=== PATIENT | female | born 1995 | race Asian ===

== ENCOUNTER 2019-03-16 01:42 | Emergency (ER) | payer SELFPAY ==
[2019-03-16] MEDS: KETOROLAC 60 MG INJ IM (07:05)
== END 2019-03-16 07:47 | disposition home or self-care (01) ==
LOC: FTE 01:42
DX: S80.12XA Contusion of left lower leg, initial encounter (principal); W20.8XXA Other cause of strike by thrown, projected or falling object, initial encounter; Y92.89 Other specified places as the place of occurrence of the external cause
CPT/HCPCS: 81025; 96372; 99284-25